=== PATIENT | female | born 2000 | race Caucasian/White ===

== ENCOUNTER 2021-05-25 04:05 | Emergency (ER) | payer BC, SELFPAY ==
--- NOTE | ~2021-05-25 | XR_ITS ---
XR hand LT min 3V DATE: 05/25/2021 05:01 INDICATION: Transcribed. Swelling of first digit. Evaluate for retained foreign body. TECHNIQUE: 4 views COMPARISON: None FINDINGS: Dorsal soft tissue swelling. No fracture or dislocation, periosteal reaction or bone destru ction. No erosive change. No radiopaque foreign body or subcutaneous emphysema. IMPRESSION: Dorsal soft tissue swelling; no radiopaque foreign body or significant bony abnormality Reviewed, dictated and finalized at location A. IMPRESSION: Dorsal soft tissue swelling; no radiopaque foreign body or signific ant bony abnormality
[2021-05-25 04:28] VITALS: PULSE 132; RESP 18; TEMP 36.6; O2SAT 98
--- NOTE | 2021-05-25 04:33 | PC.NURSE ---
Pt in saturated clothes from sweating due to PMH of cerebral palsy per pt and mother at bedside. Clothing removed and placed in dry gown w/ warm blanket. Pt refusing for u/a (straight cath), states I am my own person and I am not having any issues with my urine and I am not going to have it tested. Pt discussed w/ EDP Dr Sanchez at bedside, pt consents for blood draw. Pt declines BP at this time, unable to tolerate or lay still and states It hurts too much, take it off.
--- NOTE | 2021-05-25 05:03 | PC.NURSE ---
Pt refusing any care apart from dressing cat wound. Pt declines IV, IV meds, Lab draw, and u/a. EDP made aware. Pt mother at bedside.
--- NOTE | 2021-05-25 05:06 | ED.ABDPAIN ---
HPI - Abdominal Pain General Chief Complaint: Abdominal Pain Stated Complaint: cat scratch and abdominal pain Time Seen by Provider: 05/25/21 04:11 Source: patient and family History of Present Illness HPI narrative: Patient presents with 2 complaints primary complaint is her abdominal pain. She reports she is had abdominal pain for the past few days as crampy, constant, no clear aggravating or alleviating factors associated with some nausea and diarrhea. Patient thinks she was attacked by her cat reports she was bitten and scratched on her left hand event happened this evening she was concerned regarding the scratches so wanted them to be evaluated see if she needed stitches. Reports pain to the area that is burning, constant, worse with moving her hand does not radiate anywhere. Family reports the cat is up-to-date on their rabies vaccination. Family wash the wounds out at home Patient denies fevers, cough, chest pain, shortness of breath Related Data Allergies Allergy/AdvReac Type Severity Reaction Status Date / Time No Known Allergies Allergy Verified 05/25/21 04:36 Review of Systems Review of Systems: CONSTITUTIONAL: Denies fever, chills, or sweats. EYES: Denies visual changes, redness, or discharge. ENT: Denies rhinorrhea, congestion, sore throat, or otalgia. CARDIOVASCULAR: Denies chest pain, palpitations, or edema. RESPIRATORY: Denies cough or dyspnea. GASTROINTESTINAL: Reports abdominal pain nausea diarrhea GENITOURINARY: Denies dysuria or hematuria. SKIN: Denies rash or itching. MUSCULOSKELETAL: Denies back pain, joint pain, or myalgia. NEUROLOGIC: Denies headache, numbness, dizziness, or weakness. PSYCHIATRIC: Denies anxiety or depression. All systems reviewed & are unremarkable except as noted in HPI and below PMFSH Family History Family History Mother Hypertension Family history of chronic obstructive pulmonary disease Sibling Family history of attention deficit hyperactivity disorder (ADHD) Social History Social History Smoking status: Never smoker Alcohol intake: never Exam Narrative: GENERAL: Well-appearing, well-nourished, and in no acute distress. HEAD: Normocephalic, atraumatic. EYES: PERRLA and EOMI. ENT: Nares clear, no rhinorrhea or epistaxis. Mucous membranes moist. NECK: Supple. No masses. No JVD CHEST: Clear to auscultation. No respiratory distress. No wheezes rales or rhonchi HEART: Regular rate and rhythm. No murmur heard. Normal peripheral pulses. ABDOMEN: Mild diffuse pain with palpation soft, nondistended, normal active bowel sounds. EXTREMITIES: Normal range of motion. Multiple superficial abrasions and puncture wounds on the left hand and distal forearm there is no active bleeding there are no deep space tissues visualized SKIN: Warm, dry, no rash. NEURO: No focal deficits. Alert and oriented x3. PSYCH: Normal mood and affect. Course Reevaluation(s) Reevaluation #1: Patient refusing work-up for her abdominal pain. Patient she has been passing gas and feels a lot better she no longer wants to be evaluated for her abdominal pain. With the patient and she was having pain worrisome enough to bring her to the ER and I unable to rule out life-threatening processes without further evaluation. Patient continued to refuse. Date: 05/25/21 Time: 05:10 Vital Signs Vital signs: Vital Signs Temperature 36.6 C 05/25/21 04:28 Pulse Rate 132 H 05/25/21 04:28 Respiratory Rate 18 05/25/21 04:28 Pulse Oximetry 98 05/25/21 04:28 Temperature 36.6 C 05/25/21 04:28 Pulse Rate 132 H 05/25/21 04:28 Respiratory Rate 18 05/25/21 04:28 Pulse Oximetry 98 05/25/21 04:28 MDM - Abdominal Pain MDM Narrative Medical decision making narrative: Patient presented with multiple complaints. Her and it usually to her cats are superficial and there is no deep space t
== END 2021-05-25 05:22 | disposition left against medical advice (07) ==
LOC: ANHED 05:29
PROVIDERS: Emergency Provider Emergency Medicine; PCP Nurse Practitioner Family
DX: R10.84 Generalized abdominal pain (principal); R11.2 Nausea with vomiting, unspecified; R19.7 Diarrhea, unspecified; S61.452A Open bite of left hand, initial encounter; W55.01XA Bitten by cat, initial encounter
CPT/HCPCS: 73130; 99283

== ENCOUNTER 2022-03-15 12:31 | Emergency (ER) | payer OTHER, SELFPAY ==
--- NOTE | ~2022-03-15 | XR_ITS ---
EXAMINATION: XR abdomen obstructive series DATE: 03/15/2022 14:44 INDICATION: Abdominal pain TECHNIQUE: Upright and supine views of the abdomen were obtained. COMPARISON: None. FINDINGS: There are no dilated loops of bowel. No free intraperitoneal gas is identified. There are p hleboliths of the pelvis. There are partially imaged changes of thoracolumbar fusion. There is also p artially imaged orthopedic hardware in the visualized proximal femurs. IMPRESSION: 1. Nonobstructive bowel gas pattern. Reviewed, dictated and finalized at location L.
--- NOTE | 2022-03-15 12:52 | ED.ABDPAIN ---
HPI - Abdominal Pain General Chief Complaint: Abdominal Pain Stated Complaint: right side inner stomach, nausea Time Seen by Provider: 03/15/22 12:53 Source: patient Mode of arrival: ambulatory Limitations: no limitations History of Present Illness HPI narrative: Ms. Connor is a 21-year-old female patient presenting to the clinic today with complaints of right-sided lower abdominal pain and nausea x2 days. She report that she has only vomited 1 time yesterday. She denies any fever or chills. States pain is in the right lower abdomen. She is sexually active. Last sexual intercourse was in December, LMP was last month per patient. Her last bowel movement was 3 to 4 days ago. States it was really hard at that time. No history of any abdominal surgeries. No history of ovarian cyst. She denies any vaginal discharge or foul odor. She denies any urinary symptoms. Related Data Home Medications Medication Instructions Recorded Confirmed amitriptyline 50 mg tablet 50 mg PO DAILY 03/15/22 03/15/22 dicyclomine 20 mg tablet 20 mg PO DAILY 03/15/22 03/15/22 escitalopram oxalate 10 mg tablet 10 mg PO DAILY 03/15/22 03/15/22 medroxyprogesterone 150 mg/mL 150 mg IM MONTHLY 03/15/22 03/15/22 intramuscular suspension metoprolol succinate 50 mg 50 mg PO DAILY 03/15/22 03/15/22 tablet,extended release 24 hr sumatriptan succinate 25 mg tablet 25 mg PO DAILY 03/15/22 03/15/22 Allergies Allergy/AdvReac Type Severity Reaction Status Date / Time No Known Allergies Allergy Verified 03/15/22 13:16 Review of Systems Review of Systems: Pertinent positives per HPI. Patient denies any fever, chills, rash, headache, visual changes, dizziness, cough, runny nose, sore throat, shortness of breath, chest pain, palpitations, diarrhea, or any urinary issues. [facility] Family History Family History Mother Hypertension Family history of chronic obstructive pulmonary disease Sibling Family history of attention deficit hyperactivity disorder (ADHD) Social History Social History Smoking status: Never smoker Alcohol intake: never Comments At the time of my signature, I reviewed and agree with the nursing past medical, surgical, social, and family history. There is no relevant family history pertinent to the patient complaint. Exam Narrative: General: Well-developed, well nourished, in no apparent distress. Head: Normocephalic, atraumatic. Cardio: Regular rate and rhythm, s1 and s2 normal, no murmur appreciated. Resp: Clear to auscultation bilaterally, no rhonchi, rales, wheezing or rubs. Abdomen: Pliable, distended, bowel sounds present in all quadrants, mild tenderness to palpation over the right lower and mid quadrant, no organomegly, no CVAT tenderness. Course Course Emergency Course: Portions of this record may have been created with voice recognition software. Level of Care: Express Care Visit Vital Signs Vital signs: Vital signs reviewed MDM - Abdominal Pain MDM Narrative Medical decision making narrative: At the time of visit patient is resting comfortably on the exam table. test completed in the clinic and was negative. UA positive for blood, leukocytes, and protein. X-ray is negative for any concern for constipation or acute abdomen, I suspect the patient has urinary tract infection that is causing her right lower quadrant abdominal pain. I will place her on some Macrobid and have her follow-up with her PCP in 3 to 5 days if symptoms persist. Supportive measures were discussed with the patient she voiced understanding of discharge instructions and agrees to treatment plan. . Differential Diagnosis Differential diagnosis: Likely abdominal pain, acute appendicitis, calculus of kidney, constipation and other (Urinary tract infection) Discharge Plan Discharge Clinical Impression: Acute cystiti
[2022-03-15 12:55] VITALS: BP 136/104; PULSE 117; RESP 18; TEMP 36.8; O2SAT 99
== END 2022-03-15 15:10 | disposition home or self-care (01) ==
PROVIDERS: Emergency Provider Nurse Practitioner Family
DX: N30.01 Acute cystitis with hematuria (principal); I10 Essential (primary) hypertension; G80.9 Cerebral palsy, unspecified
CPT/HCPCS: 74019; 81003; 81025; 87086; 87088; 99213; G0463

== ENCOUNTER 2025-04-22 12:16 | Outpatient (CLI) | payer MEDICARE, MEDICAID, SELFPAY ==
--- OUTSIDE RECORDS SUMMARY | 2025-04-22 12:23 | XMS_ITS | Clinical Summary ---
Author Organization [facility] Address [address] [place] [address] Phone Care Team Providers Care Eap Specialist Name Role Phone Trisha Limon APRN, JOE Primary Care Provider Allergies No known active allergies Medications Multiple Vitamins-Physician Practice Market Manager als (MULTIVITAMIN PO) Take by mouth. Activ e METOPROLOL TARTRATE PO Take by mouth. Act chyna RaNITidine HCl (ZANTAC PO) Take by mouth. Act chyna Meloxicam (MOBIC) 15 MG Tablet Take 1 Tab by mouth daily. 10 Tab 10/11/19 18 Active medroxyPROGEST ERone (DEPO-PROVERA) 150 MG/ML Suspension medroxyprogesterone 150 mg/mL intramuscular suspension 09/18/19 16 Active baclofen (LIORESAL) 20 MG Tablet TAKE 1 TABLET(20 MG) BY MOUTH TWICE DAILY 01/17/20 22 Active senna-docusate (SENOKOT S) 8.6-50 MG Tablet Senna-S 8.6 mg-50 mg tablet TK 1 T PO BID PRF CONSTIPATION Active metoprolol Succinate (TOPROL-XL) 50 MG TABLET SR 24 HR metoprolol succinate ER 50 mg tablet,extended release 24 hr TK 1 T PO D 08/13/20 19 Active escitalopram (LEXAPRO) 10 MG Tablet TAKE 1 TABLET(10 MG) BY MOUTH EVERY NIGHT AT BEDTIME 06/28/20 22 Active amitriptyline (ELAVIL) 50 MG Tablet 08/29/19 23 Active amphetamine-de xtroamphetamin e (ADDERALL) 10 MG Tablet dextroamphetamine-amph etamine 10 mg tablet TK 1 T PO D EVERY AFTERNOON Active dicyclomine (BENTYL) 20 MG Tablet 08/29/19 Active ondansetron (ZOFRAN-ODT) 4 MG TABLET DISPERSIBLE Take 1 Tablet by mouth every 8 hours as needed for Nausea - 1st line. 20 Tablet 09/06/19 23 Active naproxen (NAPROSYN) 500 MG Tablet Take 1 Tablet by mouth 2 times daily as needed for Mild or more severe pain. 20 Tablet 10/07/19 23 Active Social History Tobacco Use Types Packs/Day Years Used Date Smoking Tobacco: Never Smokeless Tobacco: Never Alcohol Use Standard Drinks/Week Comments No 0 (1 standard drink = 0.6 oz pur e alcohol) Comments No Sex and Gender Information Value Date Recorded Sex Assigned at Not on file Legal Sex Female 8:41 PM CDT Gender Identity Not on file Sexual Orientation Not on file Last Filed Vital Signs Vital Sign Reading Time Taken Comments Blood Pressure 111/72 10/07/2022 10:28 PM PRINCIPAL SECURITY ARCHITECT Pulse 97 10/07/2022 9:13 PM PRINCIPAL SECURITY ARCHITECT Temperature 36.8 C (98.2 F) 10/07/2022 9:13 PM PRINCIPAL SECURITY ARCHITECT Respiratory Rate 20 10/07/2022 9:13 PM PRINCIPAL SECURITY ARCHITECT Oxygen Saturation 100% 10/07/2022 9:13 PM PRINCIPAL SECURITY ARCHITECT Inhaled Oxygen Concentration - - Weight 86.2 kg (190 lb) 10/07/2022 9:13 PM PRINCIPAL SECURITY ARCHITECT Height 167.6 cm (5' 6) 10/07/2022 9:13 PM PRINCIPAL SECURITY ARCHITECT Body Mass Index 30.67 10/07/2022 9:13 PM PRINCIPAL SECURITY ARCHITECT Plan of Treatment Health Maintenance Due Date Last Done Comments Hepatitis C Virus (HCV) Screening 1998 Influenza Immunization (#1) 04/18/202505/18, 06/22/2021, 05/30/2020, Additional history exists SARS-COV-2 Immunization ( season) 2025 11/26/2020, 10/31/2020 Respiratory Syncytial Virus (RSV) Immunization (Adult) (1 - 1-dose 75+ series) 2073 Hepatitis B Immunization Completed 999, 1998, 1998, Additional history exists DTaP/Tdap/Td Immunization Discontinued 2009, 07/04/2003, 07/04/2003, Additional history exists Human Papillomavirus (HPV) Immunization Completed 04/20/2010, 04/20/2010, 07/04/2009, Additional history exists TdaP Immunization Completed 04/20/2010 Meningococcal Immunization (ACWY) Completed 07/09/2014, 03/30/2013 Pneumococcal Immunization Combined Aged Out No longer eligible based on patient's age to complete this topic Rotavirus Immunization Aged Out No lo nger eligible based on patient's age to complete this topic Insurance [place]ICAID [place] Care Teams Eap Specialist Relationship Specialty Start Date End Date Trisha Limon APRN, IMAGING ADMINISTRATOR [address] [place] [phone] PCP - General Internal Medicine 08/31/22
--- OUTSIDE RECORDS SUMMARY | 2025-04-22 12:23 | XMS_ITS | Encounter Summary ---
Author Organization [facility] Facility Care Team Providers Care Family And Consumer Science Professor Name Role Phone Miscellaneous, Not In File Primary Care Provider Unavailable Kike Osorio DO Primary Care Provider [phone] Trisha Limon COMBAT CONTROL MANAGER Unavailable [phone] Encounter Details Date Type Department Care Team (Latest Contact Info) Description 09/20/2016 Orders Only [facility]INCON[facility] ProviderSilvestre MD [address] [place] [id number] Social History Tobacco Use Types Packs/Day Years Used Date Smoking Tobacco: Never Assessed Comments Unknown Sex and Gender Information Value Date Recorded Sex Assigned at Not on file Legal Sex Female 11:41 PM SOCIAL MEDIA JOB TITLES Gender Identity Not on file Sexual Orientation Not on file documented as of this encounter Plan of Treatment Not on file documented as of this encounter Procedures Procedure Name Priority Date/Time Associated Diagnosis Comments SCAN - LABS 09/20/2016 12:00 AM SOCIAL MEDIA JOB TITLES SCAN - LABS 09/20/2016 12:00 AM SOCIAL MEDIA JOB TITLES documented in this encounter Results * SCAN - LABS (09/20/2016 12:00 AM SOCIAL MEDIA JOB TITLES) Narrative 09/20/2016 12:00 AM SOCIAL MEDIA JOB TITLES Ordered by an unspecified provider. us Historical Provider MD Final Res ult * SCAN - LABS (09/20/2016 12:00 AM SOCIAL MEDIA JOB TITLES) Narrative 09/20/2016 12:00 AM SOCIAL MEDIA JOB TITLES Ordered by an unspecified provider. us Historical Provider MD Final Res ult documented in this encounter Visit Diagnoses Not on filedocumented in this encounter Care Teams Family And Consumer Science Professor Relationship Specialty Start Date End Date Miscellaneous, Not In File PCP - General 10/05/17 Kike Osorio DO PCP - General Internal Medicine 09/30/18 Trisha Limon NP Nurse Practitioner Nurse Practitioner 07/22/23 documented as of this encounter
--- OUTSIDE RECORDS SUMMARY | 2025-04-22 12:23 | XMS_ITS | Clinical Summary ---
Author Organization [facility] Address [address] [place] [address] Care Team Providers Care Harness Racing Handicapper Name Role Phone Trisha Limon SPRING FLOOR SERVICE WORKER-SPRING ASSEMBLER Primary Care Provider [phone] Jacque Anand SPRING FLOOR SERVICE WORKER-SPRING ASSEMBLER Unavailable [phone] Source Comments [facility],non-owned Affiliates and Associated Physician Practices is amultiple site organization consisting of ambulatory clinics and hospital sitesin [place], [place], [place] and [place]. This disclosure is being madepursuant to the Care Everywhere program and may not contain all information available regarding this patient. Last updated 18.[facility] Allergies No known active allergies Medications * Be aware that medications may not be up to date on this document. Alwaysverify current medications with the patient. polyethylene glycol 3350 (MIRALAX) powder Take 8.5 g by mouth once daily. 250 g 4 11/24/2014 Active medroxyPROGESTE Dominic (DEPO-PROVERA) 150 MG/ML injection Inject 1 mL into muscle 3 09/18/2015 Active amitriptyline (Elavil) 50 MG tablet TAKE 1 TABLET(50 MG) BY MOUTH EVERY NIGHT AT BEDTIME 08/29/2022 Active baclofen (Lioresal) 10 MG tablet 09/15/2023 Active dicyclomine (Bentyl) 20 MG tablet TAKE 1 TABLET(20 MG) BY MOUTH EVERY 6 HOURS 08/29/2022 Active escitalopram (Lexapro) 10 MG tablet Take 1 (one) tablet by mouth once daily 06/28/2022 Active loratadine (Claritin) 10 MG tablet once daily Active metoprolol succinate XL 24hr (Toprol XL) 50 MG tablet 09/15/2023 Active traZODone (Desyrel) 50 MG tablet 07/30/2023 Active triamcinolone acetonide (Kenalog) 0.1 % ointment 02/28/2023 Active Ubrelvy 100 MG tablet 09/15/2023 Active Active Problems Problem Noted Date Diagnosed Date Anxiety 10/06/2015 ADHD (attention deficit hyperactivity disorder) 03/31/2014 CP (cerebral palsy), spastic, 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 (AF LURIA, FLUZONE TRIVALENT; 6MO+) (IIV3) 08/31/2009 DTaP VACCINE IM (6wk-6yrs) 07/04/2003,,01/01/1999,10/30,1998 HEP A PEDS 2 DOSE 01/30/2007,08/04/2006 HEP B VACCINE, PED/ADOL 04/03/1999,1998, HIB BOOSTER 12/31/1999, 9,1998,08/30 Human Papilloma Virus Robe valent Vaccine 04/20/2010 Human Papilloma Virus Vaccine 07/04/2009, 009 INFLUENZA A A4M2-14 VACCINE 07/04/2009 INFLUENZA VACCINE 08/03/2008, 7,08/04/2006,05/18,06/11/2002,08/13/2001,07/10/2001 INFLUENZA VACCINE, QUADR. (F LUZONE; FLULAVAL; FLUARIX; AFLURIA QUADRIVALENT; 6MO+), 0.5 ML (IIV4) 05/02/2016 PARISH VACCINE QUAD LAIV4 PF NASAL 06/29/2015,2013,06/17/2013 MENINGOCOCCAL ACWY (MCV4P) VAC IM 07/09/2014, MMR 07/04/2003,07/02/1999 POLIO IPV 07/04/2003, 0,1998,08/30 PPD 07/04/2003,07/02/1999 TDAP (7yrs+) 04/20/2010 VARICELLA 10/01/1999 Social History Tobacco Use Types Packs/Day Years Used Date Smoking Tobacco: Never Tobacco Cessation:Counseling Given: Not Answered Alcohol Use Standard Drinks/Week Comments Not Asked 0 (1 standard drink = 0.6 oz pur e alcohol) Comments No Sex and Gender Information Value Date Recorded Sex Assigned at Not on file Legal Sex Female 6:54 AM COIN PURSE FRAMER Gender Identity Not on file Sexual Orientation Not on file Last Filed Vital Signs Vital Sign Reading Time Taken Comments Blood Pressure 113/82 10/23/2023 10:49 AM COIN PURSE FRAMER Pulse 100 10/23/2023 10:49 AM COIN PURSE FRAMER Temperature 36.3 C (97.3 F) 10/23/2023 10:49 AM COIN PURSE FRAMER Respiratory Rate 20 03/23/2015 10:29 AM CDT Oxygen Saturation 96% 10/23/2023 10:49 AM COIN PURSE FRAMER Inhaled Oxygen Concentration - - Weight 86.6 kg (191 lb) 10/23/2023 10:49 AM COIN PURSE FRAMER Height 167.6 cm (5' 6) 10/23/2023 10:49 AM COIN PURSE FRAMER Body Mass Index 30.83 10/23/2023 10:49 AM COIN PURSE FRAMER Plan of Treatment Health Maintenance Due Date Last Done Comments HIV SCREENING 2013 HEPATITIS C SCREENING 06/25/2016 PAP SMEAR 2019 DTAP/TDAP/TD VACCINES (7 - Td or Tdap) 04/20/2020 04/20/2010, 07/04/2003, 12/31/1999, Additional history exists DEPRESSION SCREENING 08/18/2024 MEDICARE AWV CALENDAR YEAR 2024 COVID-19 VACCINE ( season) 2025 INFLUENZA VACCINE (#1) 2025 3, 05/31/2022, 06/22/2021, Additional history exists ZOSTER VACCINE (1 of 2) 2048 HEPATITIS B VACCINE Completed 04/03/1999, 1998, 1998 HIB VACCINE Completed 12/31/1999, 12/16, 1998, Additional history exists HPV VACCINE Completed 04/20/2010, 06/18, 04/14/2009 MENINGOCOCCAL GROUPS A/C/Y/W VACCINE Completed 07/09/2014, 03/30/2013 MENINGOCOCCAL (Group B) VACCINE SHARED DECISION-MAKING Aged Out No longer eligible based on patient's age to complete this topic PNEUMOCOCCAL VACCINE Aged Out No long er eligible based on patient's age to complete this topic Goals Goal Patient Goal Type Associated Problems Recent Progress Patient-Stated? Author Use safety retraint in car Lifestyle On track( 016 9:43 AM CDT) Yen Nichols RN Note: NEW CAR SEAT SAFETY RULES Infants and toddlers should ride facing the rear of the vehicle until at least 2 years of age. Young children should ride in car safety seats with a 5 point harness until at least age 4. School-aged children should ride in belt positioning high back booster seats until at least age 8 or 80 lb until the seat belt fits correctly, as described by the AAP and NHTSA. Children should ride in the rear-seat until age 13. Seat belt laws should apply to all vehicle occupants Insurance [facility] MEDICAID - OUT OF STATE [facility] [employer] MANAGED MEDICARE ADV * Guarantor: CHRISTINA LANZA Account Type Relation to Patient Date of Phone Billing Address Personal/Family 2000 JESSENIA LANZA [address] [place] [address] Care Teams Harness Racing Handicapper Relationship Specialty Start Date End Date Trisha Limon APRN-CNP [address] [place] [id number] PCP - General Nurse Practitioner 10/09/23 Jacque Anand APRN-SPRING ASSEMBLER [address] [place] [address] PCP - Attributed-[facility] 03/18/25
--- OUTSIDE RECORDS SUMMARY | 2025-04-22 12:23 | XMS_ITS | Encounter Summary ---
Author Organization [facility] Facility Care Team Providers Care Liquefaction Supervisor Name Role Phone Miscellaneous, Not In File Primary Care Provider Unavailable Kike Osorio DO Primary Care Provider [phone] Trisha Limon AUTOMOBILE WASHER STEAM Unavailable [phone] Encounter Details Date Type Department Care Team (Latest Contact Info) Description 01/14/2018 Orders Only [facility] CLINCON[facility] ProviderSilvestre MD [address] [place] [id number] Social History Tobacco Use Types Packs/Day Years Used Date Smoking Tobacco: Never Alcohol Use Standard Drinks/Week Comments No 0 (1 standard drink = 0.6 oz pur e alcohol) Comments No Sex and Gender Information Value Date Recorded Sex Assigned at Not on file Legal Sex Female 11:41 PM CEMENT BLOCK MAKER Gender Identity Not on file Sexual Orientation Not on file documented as of this encounter Plan of Treatment Not on file documented as of this encounter Procedures Procedure Name Priority Date/Time Associated Diagnosis Comments SCAN - LABS 01/15/2018 12:00 AM CDT documented in this encounter Results * SCAN - LABS (01/15/2018 12:00 AM CDT) Narrative 01/15/2018 12:00 AM CDT Ordered by an unspecified provider. us Historical Provider MD Final Res ult documented in this encounter Visit Diagnoses Not on filedocumented in this encounter Care Teams Liquefaction Supervisor Relationship Specialty Start Date End Date Miscellaneous, Not In File PCP - General 10/05/17 Kike Osorio DO PCP - General Internal Medicine 09/30/18 Trisha Limon, JADE Nurse Practitioner Nurse Practitioner 07/22/23 documented as of this encounter
--- OUTSIDE RECORDS SUMMARY | 2025-04-22 12:23 | XMS_ITS | Encounter Summary ---
Author Organization [facility] Facility Care Team Providers Care Bunch Maker Name Role Phone Miscellaneous, Not In File Primary Care Provider Unavailable Kike Osorio DO Primary Care Provider [phone] Trisha Limon RABBIT BREEDER Unavailable [phone] Encounter Details Date Type Department Care Team (Latest Contact Info) Description 09/23/2016 Orders Only [facility] CLINCONV Provider, MD Silvestre [address] [place] [address] Social History Tobacco Use Types Packs/Day Years Used Date Smoking Tobacco: Never Assessed Comments Unknown Sex and Gender Information Value Date Recorded Sex Assigned at Not on file Legal Sex Female 11:41 PM NEEDLE CONTROL CHENILLER Gender Identity Not on file Sexual Orientation Not on file documented as of this encounter Plan of Treatment Not on file documented as of this encounter Procedures Procedure Name Priority Date/Time Associated Diagnosis Comments SCAN - LABS 09/23/2016 12:00 AM NEEDLE CONTROL CHENILLER documented in this encounter Results * SCAN - LABS (09/23/2016 12:00 AM NEEDLE CONTROL CHENILLER) Narrative 09/23/2016 12:00 AM NEEDLE CONTROL CHENILLER Ordered by an unspecified provider. Historical Provider Final Res ult documented in this encounter Visit Diagnoses Not on filedocumented in this encounter Care Teams Bunch Maker Relationship Specialty Start Date End Date Miscellaneous, Not In File PCP - General 10/05/17 Kike Osorio DO PCP - General Internal Medicine 09/30/18 Trisha Limon NP Nurse Practitioner Nurse Practitioner 07/22/23 documented as of this encounter
--- OUTSIDE RECORDS SUMMARY | 2025-04-22 12:23 | XMS_ITS | Clinical Summary ---
Author Organization [facility] Address [address] [place] [address] Care Team Providers Care Welding Manager Name Role Phone Kike Osorio DO Primary Care Provider [phone] Trisha Limon ELDERLY CAREGIVER Unavailable [phone] Allergies No known active allergies Medications levonorgestrel & ethinyl estradiol (AMETHIA) 0.15 mg-30 mcg tablets,dose pack,3 monthIndications: Menorrhagia Take 1 tablet by mouth nightly Active aspirin 325 mg enteric coated tabletIndications :prevention of thrombosis Take 1 tablet (325 mg total) by mouth daily for 30 doses 30 tablet Active amitriptyline (ELAVIL) 10 mg tabletIndications :stomach Take 1 tablet (10 mg total) by mouth nightly as needed for sleep Active methocarbamol (ROBAXIN) 500 mg tablet Take 1 tablet (500 mg total) by mouth 2 (two) times a day Active dicyclomine (BENTYL) 20 mg tabletIndications :Abdominal Pain with Cramps Take 1 tablet (20 mg total) by mouth 2 (two) times a day 0 Active wheelchair device Removable arms, elevated leg rests 1 each 020 Active metoprolol XL (TOPROL-XL) 50 mg 24 hr tablet Take 1 tablet (50 mg total) by mouth daily 019 Active naproxen (ANAPROX DS) 550 mg tablet Take 1 tablet (550 mg total) by mouth 2 (two) times a day Active acetaminophen-cod eine (TYLENOL with CODEINE #3) 300-30 mg per tablet acetaminophen 300 mg-codeine 30 mg tablet Active amoxicillin (AMOXIL) 500 mg tablet/capsule amoxicillin 500 mg capsule Active amoxicillin-clavu lanate (AUGMENTIN) 875-125 mg per tablet amoxicillin 875 mg-potassium clavulanate 125 mg tablet Active azithromycin (ZITHROMAX) 250 mg tablet azithromycin 250 mg tablet ZPK Active baclofen (LIORESAL) 10 mg tablet 022 Active benzonatate (TESSALON) 100 mg capsule benzonatate 100 mg capsule TK 1 C PO TID FOR 10 DAYS PRN Active cefuroxime (CEFTIN) 250 mg tablet cefuroxime axetil 250 mg tablet Active celecoxib (CeleBREX) 200 mg capsule celecoxib 200 mg capsule TK 1 C PO QD Active cephalexin (KEFLEX) 500 mg capsule cephalexin 500 mg capsule TK 1 C PO Q 12 H FOR 7 DAYS Active citalopram (CeleXA) 20 mg tablet citalopram 20 mg tablet TAKE 1/2 TAB DAILY FOR 7 DAYS, THEN 1 TAB DAILY Active dextroamphetamine -amphetamine (ADDERALL) 10 mg tablet dextroamphetamine-amph etamine 10 mg tablet TK 1 T PO D EVERY AFTERNOON Active HYDROcodone-aceta minophen (NORCO) 5-325 mg per tablet hydrocodone 5 mg-acetaminophen 325 mg tablet TK 1 TO 2 TS PO Q 6 H PRN P Active ketorolac (TORADOL) 10 mg tablet ketorolac 10 mg tablet TK 1 T PO Q 6 H PRN P Act chyna lisdexamfetamine (VYVANSE) 70 mg capsule Vyvanse 70 mg capsule Active loratadine (CLARITIN) 10 mg tablet daily Active meclizine (ANTIVERT) 25 mg tablet meclizine 25 mg tablet TK 1 T PO TID PRF DIZZINES Active medroxyPROGESTERo ne (medroxyPROGESTER one) 150 mg/mL injection medroxyprogesterone 150 mg/mL intramuscular suspension Active nitrofurantoin monohydrate (MACROBID) 100 mg capsule nitrofurantoin monohydrate/macrocryst als 100 mg capsule TK 1 C BID WITH MORNING AND EVENING MEAL FOR 5 DAYS Active ondansetron ODT (ZOFRAN-ODT) 4 mg disintegrating tablet ondansetron 4 mg disintegrating tablet DIS 1 T ON THE TONGUE Q 8 H PRN Active polymyxin B-trimethoprim (POLYTRIM) ophthalmic solution polymyxin B sulfate 10,000 unit-trimethoprim 1 mg/mL eye drops INSTILL 1 DROP IN AFFECTED EYE Q 4 H WHILE AWAKE FOR 7 DAYS Ac tive promethazine (PHENERGAN) 12.5 mg tablet promethazine 12.5 mg tablet TK 1 T PO Q 6 H PRN N OR VOMITING FOR UP TO 7 DAYS Active senna-docusate (PERICOLACE) 8.6-50 mg Senna-S 8.6 mg-50 mg tablet TK 1 T PO BID PRF CONSTIPATION Active sertraline (ZOLOFT) 25 mg tablet sertraline 25 mg tablet TK 1 T PO ONCE D Active sulfamethoxazole- trimethoprim (BACTRIM DS) 800-160 mg per tablet sulfamethoxazole 800 mg-trimethoprim 160 mg tablet TK 1 T PO BID FOR 7 DAYS Active SUMAtriptan (IMITREX) 25 mg tablet TAKE 1 TABLET BY MOUTH AT ONSET OF HEADACHE. MAY REPEAT IN 2 HOURS IF NO RELIEF 022 Active traMADoL (ULTRAM) 50 mg tablet tramadol 50 mg tablet TK 1 T PO Q 6 H Active erenumab-aooe (Aimovig Autoinjector) 70 mg/mL auto-injector subcutaneous injection Inject 1 mL (70 mg total) under the skin every 30 (thirty) days Ac tive Active Problems Patient Care Coordination No te Formatting of this note migh t be different from the original. 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 Overview (11/30/2018): Added automatically from request for surgery [id number] Generalized abdominal pain 07/17/2018 Gastroesophageal reflux dise ase, esophagitis presence not specified 07/17/2018 Abdominal bloating 07/17/2018 Essential hypertension 01/03/2017 Anxiety 10/06/2015 Attention deficit hyperactivity disorder (ADHD) 03/31/2014 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 Immunizations Immunization Administration Dates Next Due DTaP 07/04/2003, 0,01/01/1999,10/30,1998 DTaP / IPV 07/04/2003, 0,1998,08/30 H1N1 Inj 07/04/2009 HPV, Quadrivalent 04/20/2010 HPV, Unspecified 04/20/2010,07/04/2009, 9 Hep A, Ped Unspecified 01/30/2007,08/04/2006 Hep A, Pediatric 01/30/2007,08/04/2006 Hep A, Unspecified 01/30/2007,08/04/2006 Hep B, Adolescent or Pediatric 9,1998,1998,06/30 HiB 12/31/1999, 9,1998,08/30 Hib (HbOC) 12/31/1999, 9,1998,08/30 Hib (PRP-D) 12/31/1999, 9,1998,08/30 IPV 07/04/2003, 0,1998,08/30 Influenza LAIV (Nasal) 06/29/2015,05/13/2014, Influenza, Live, Intranasal, Quadrivalent 06/29/2015,05/13/2014,06/17/2013 Influenza, Quadrivalent, Spl it, Intramuscular 07/07/2017 Influenza, Quadrivalent, Spl it, Preservative Free, Intramuscular 06/22/2021,05/30/2020,08/25/2019,05/02 Influenza, Split 08/31/2009,08/03/2008 Influenza, Unspecified 06/16/2007,2005,05/18/2003,06/11,08/13/2001,07/15/2001 MMR 07/04/2003,07/02/1999 Meningococcal MCV4P (Menactra) 07/09/2014,2012 PPD TEST 07/04/2003,07/02/1999 Tdap 04/20/2010 Varicella 10/01/1999 Surgical History Surgery Date Site/Laterality Comments LEG SURGERY 08/18/2014 - 08/17/2015 HEEL SPUR SURGERY 08/18/2006 - 08/17/2007 Bilateral TYMPANOSTOMY TUBE PLACEMENT 08/18/2003 - 08/17/2004 ANKLE SURGERY 12/15/2018 Left BACK SURGERY 08/18/2011 - 08/17/2012 HIP SURGERY Bilateral Medical History Medical History Date Comments Cerebral palsy Scoliosis Anxiety Gastric reflux Hypertension MRSA (methicillin resistant Staphylococcus aureus) Congenital diplegia (HCC) 11/30/2018 Added automatically from request for surgery [id number] Family History Medical History Relation Name Comments Heart failure Maternal Grandmother Arthritis Mother Hypertension Mother Mental illness Mother lung problems Mother Anesthesia problems Neg Hx Relation Name Status Comments Maternal Grandmother Mother Social History Tobacco Use Types Packs/Day Years Used Date Smoking Tobacco: Never Smokeless Tobacco: Never Tobacco Cessation:Counseling Given: Not Answered Alcohol Use Standard Drinks/Week Comments No 0 (1 standard drink = 0.6 oz pur e alcohol) AUDIT-C Answer Date Recorded Q1: How often do you have a drink containing alc ohol? Monthly or less 07/20/2024 Q2: How many drinks containi ng alcohol do you have on a typical day when you are drinking? 1 or 2 07/20/2024 Q3: How often do you have si x or more drinks on one occasion? Never 07/20/2024 Hunger Vital Sign Answer Date Recorded Within the past 12 months, y ou worried that your food would run out before you got the money to buy more. Never true 07/20/20 24 Within the past 12 months, t he food you bought just didn't last and you didn't have money to get more. Never true 07/20/2024 Comments No Sex and Gender Information Value Date Recorded Sex Assigned at Not on file Legal Sex Female 11:41 PM WILDLIFE REFUGE SPECIALIST Gender Identity Not on file Sexual Orientation Not on file Obstetrics History Last Filed Vital Signs Vital Sign Reading Time Taken Comments Blood Pressure 113/62 07/20/2024 3:19 PM WILDLIFE REFUGE SPECIALIST Pulse 88 07/20/2024 3:19 PM WILDLIFE REFUGE SPECIALIST Temperature 36.9 C (98.4 F) 07/20/2024 3:19 PM WILDLIFE REFUGE SPECIALIST Respiratory Rate 16 12/09/2023 12:21 PM CDT Oxygen Saturation 97% 07/20/2024 3:19 PM WILDLIFE REFUGE SPECIALIST Inhaled Oxygen Concentration - - Weight 99.8 kg (220 lb) 07/20/2024 3:19 PM WILDLIFE REFUGE SPECIALIST Height 167.6 cm (5' 6) 07/20/2024 3:19 PM WILDLIFE REFUGE SPECIALIST Body Mass Index 35.51 07/20/2024 3:19 PM WILDLIFE REFUGE SPECIALIST Plan of Treatment Health Maintenance Due Date Last Done Comments Cervical Cancer Screening 1998 Depression Screening 1998 Hepatitis C Screening 1998 Varicella Vaccines (2 of 2 - 2-dose childhood series) 07/27/2015 10/01/1999 Regular Well Visit/Exam 18-64 2016 Influenza Vaccine (#1) 2025 , 05/31/2022, 06/22/2021, Additional history exists DTaP/Tdap/Td Vaccine (8 - Td or Tdap) 11/06/2032 11/06/2022, 04/20/2010, 07/04/2003, Additional history exists Hepatitis B Screening Completed 04/03/1999 , 1998, 1998, Additional history exists HPV Vaccines Completed 04/20/2010, 10/2009, 07/04/2009, Additional history exists Pneumococcal vaccine <65 Aged Out No longer eligible based on patient's age to complete this topic Medical Devices Implanted Type Area Astronomy Professor Device Identifier Shelf Expiration Date Model / Serial / Lot [employer] [id number] Tenodesis 4.75mm 15mm Acl Screw Interference Biocomposite Sterile - [id number] Implanted:Qty: 1 on 12/15/2018 by Yevgeniy Bustillos MD at [facility] Left: Foot [employer] [id number] 04/17/2020 AR-1547BC / / [id number] [employer] [id number] Tenodesis 4.75mm 15mm Acl Screw Interference Biocomposite Sterile - [id number] Implanted:Qty: 1 on 08/24/2019 by Yevgeniy Bustillos MD at [facility] Medicine Right: Foot [employer] [id number] 04/17/2020 AR-1547BC / / [id number] Insurance [facility] [place] [address] [facility] Member Subscriber Plan / Payer (Ef fective 2021-Present) Name:Antionette Lanza Relation to Subscriber:Self Name:Antionette Lanza Payer ID:[id number] (NAIC) Type:MEDICAID RISK OTHER Address: [address] [address] [facility] OTHER Address: [address] [address] MEDICARE Advance Directives For more information, please contact: [phone] * Full Code (Latest Code Status on File) Date Activated Date Inactivated Comments 08/24/2019 5:52 PM 08/25/2019 5:31 PM * Full Code Date Activated Date Inactivated Comments 12/15/2018 12:20 PM 12/16/2018 7:42 PM Care Teams Welding Manager Relationship Specialty Start Date End Date Kike Osorio DO PCP - General Internal Medicine 09/30/18 Trisha Limon NP Nurse Practitioner Nurse Practitioner 07/22/23
--- NOTE | 2025-04-22 12:27 | ECG_ITS ---
Test Date: 2025-04-22 12:36:56 Measurements Intervals [place] Rate: 96 P: 16 SC: 140 QRS: 52 QRSD: 93 T: 21 QT: 336 QTc: 426 Interpretive Statements SINUS RHYTHM No previous ECG available for comparison Electronically Signed On 04-22-2025 12:45:52 CDT by Jamal Arora M.D.
[2025-04-22 13:02] LABS: Hematocrit 40.3 % (37.0-47.0); Hemoglobin 13.2 g/dL (12.0-15.0); Mean Corpuscular HGB Conc 32.8 g/dl (32-36); Mean Corpuscular Hemoglobin 29.8 pg (26-34); Mean Corpuscular Volume 91.0 fl (80-100); Platelet Count Result 311 k/mm3 (150-375); Red Blood Count 4.43 M/mm3 (4.2-5.4); White Blood Count 8.2 K/mm3 (4.5-10.0)
== END 2025-04-22 12:17 | disposition home or self-care (01) ==
LOC: ANHSURGERY 12:21
PROVIDERS: PCP Nurse Practitioner Family; Visit Provider Obstetrics & Gynecology
DX: Z30.09 Encounter for other general counseling and advice on contraception (principal); I10 Essential (primary) hypertension
CPT/HCPCS: 36415; 85027; 93005

== ENCOUNTER 2025-05-12 00:24 | Day surgery (SDC) | payer MEDICARE, MEDICAID, SELFPAY ==
[2025-04-21 11:20] VITALS: BMI 35.6
--- NOTE | 2025-04-21 11:28 | PC.NURSE ---
Addendum entered by Chaz Mayo RN 05/02/25 12:59: Patient says nothing has changed with her since preop interview. Says surgery was cancelled because her family, not her had covid. She was away when it happened and just stayed away until it was over so she did not get sick. Informed patient to be her 0700 on 05-12-2025 at 0900. Patient has a copy of the below instructions. Encouraged her to read it over again. Original Note: Report to the Outpatient Waiting Room, entrance under the green pavilion located off [facility], at time _0630_ on date _[id number]_. Planned Procedure Time: _0830_.? Time changes happen often and if your time is changed the preop area will call you the afternoon before. - You and your visitor will be asked to self-screen and do not enter if you have any COVID symptoms. Please call surgeon if you need to reschedule. - A mask is optional within the hospital at this time. Patients may have clear liquids (water, carbonated beverages, clear teas, apple juice) until 3 hours prior to surgery with a maximum of 20 ounces. - No food from midnight until time of surgery and no smoking, or chewing tobacco (or any form of nicotine). No chewing gum, candy or mints. Take only the following medications with a SIP of water on the morning of surgery: __None____ DO NOT STOP ANY OF YOUR OTHER PRESCRIPTION MEDICATIONS PRIOR TO SURGERY EXCEPT THE FOLLOWING Hold all vitamins and supplements for 3 days per anesthesiologist. Medications to discontinue per physician Date to take last dose Please no make-up, nail jordanian, hairspray, perfume, deodorant, or body powder the day of surgery.? No jewelry (including any body piercings) or valuables the day of surgery, leave them at home.? Please take a shower or bath the night before, or the morning of, surgery with an antibacterial soap.? Wear comfortable, loose fitting clothing.? - Jewelry must be removed prior to entering the operating room.? Rings and piercings that are not removed may be cut off. - The hospital will not accept responsibility for valuables.? - Please leave all valuables, including medications, at home the day of surgery. If you are going home after surgery, a licensed driver service technician must drive you home.? - NO public transportation without another adult if you receive anesthesia. - We recommend that an adult stay with you for 24 hours following discharge. - We also recommend that you do not drive, make important decision, drink alcoholic beverages, or take any drugs that were not prescribed by your health care provider for at least 24 hours after your discharge time. Follow any additional instructions given to you from your surgeon. Telephone instructions given to __Antionette and her mother___and asked if any additional questions and then verbalized understanding. Patient advised to call surgeon office or pre surgery nurse liaison [phone] if any additional questions.
--- NOTE | 2025-05-11 17:48 | PM.IMHP ---
H&P: HPI History of Present Illness Date/Time: 05/11/25 17:48 24-year-old female presents for permanent sterilization. She has cerebral palsy and understands that would be a significant burden for her. Is not interested in childbearing, we have discussed is that she and her family and they are all in agreement to proceed with permanent sterilization. Also has a fairly significant history of abnormal bleeding for which she would like to stay on control pills after procedure. Chief Complaint: Undesired fertility Review of Systems Review of Systems: All systems reviewed & are unremarkable except as noted in HPI and below PMFSH Past Medical History Medical History Cyst of brain Encounter for Papanicolaou smear for cervical cancer screening Purulent drainage of both ears through ear tube as child Hip dysplasia Hypertension Scoliosis Cerebral palsy, unspecified (03/30/19) Surgical History Surgical History History of orthopedic surgery bilateral foot surgery History of back surgery metal rods in back , hip to knees Family History Family History Mother Hypertension Family history of chronic obstructive pulmonary disease Sibling Family history of attention deficit hyperactivity disorder (ADHD) Grandparent Alzheimer disease grandmother Social History Social History Smoking status: Never smoker Second hand tobacco smoke exposure: Yes Alcohol intake: current Alcohol use details: 1-3 times a year Substance use: current Substance use type: marijuana Other substance usage details: Edibles for pain at night Do You Feel Safe in your Home?: Yes Lack of Transportation: No Lack of Food: Never True Current Housing: I Have Housing Concerned About Future Housing: No Difficulty Paying Gas/Electric Bills: No Difficulty Paying for Meds: No Currently Unemployed: No Education: High School Diploma/GED Difficulty w/ Childcare or Family Care: No Living arrangements: with family Additional living arrangements comments: lives with grandparents Occupation/Education: unemployed Additional occupation/education comments: disabled Gender identity (if verbalized by the patient): Female Sexual Orientation (if Verbalized by the Patient): Straight or Heterosexual Spiritual care concerns: No Meds Home Medications and Allergies Home Medications ?Medication ?Instructions ?Recorded ?Confirmed ?Type dicyclomine 20 mg tablet 20 mg PO DAILY 03/15/22 05/02/25 History escitalopram oxalate 10 mg tablet 10 mg PO DAILY 03/15/22 04/21/25 History metoprolol succinate 50 mg 50 mg PO DAILY 03/15/22 04/21/25 History tablet,extended release 24 hr sumatriptan succinate 25 mg tablet 25 mg PO DAILY 03/15/22 04/21/25 History drospirenone 3 mg-ethinyl 1 tablet PO DAILY #84 tabs 07/22/24 04/21/25 Rx estradiol 0.02 mg tablet (KARIME (28)) Allergies Allergy/AdvReac Type Severity Reaction Status Date / Time No Known Allergies Allergy Verified 05/02/25 12:59 Exam Resp: Effort & Inspection: normal respiratory effort Auscultation: clear to auscultation bilaterally Cardio: Rate: regular rate Rhythm: regular rhythm GI: Inspection: normal to inspection Auscultation: normal bowel sounds : External Female Exam: normal external appearance Speculum Exam - Vagina: normal appearance of the vagina Bimanual exam- vagina & uterus: normal bimanual exam Bimanual Exam- Adnexa, other: normal adnexae Assessment and Plan Assessment and plan (1) Encounter for female sterilization procedure: Code(s): Z30.2 - Encounter for sterilization Status: Acute Assessment and Plan: proceed with laparoscopic bilateral salpingectomy
[2025-05-12] VITALS (7 sets, daily range): BP systolic 121–144; BP diastolic 74–108; PULSE 73–86; RESP 13–18; TEMP 36.2–36.6; O2SAT 97–100
[2025-05-12] MEDS: ACETAMINOPHEN 500 MG TABLET 1000 MG PO (07:32)
[2025-05-12] MEDS: LACTATED RINGERS 1,000 ML 30 ML IV CONT (07:50)
[2025-05-12 07:51] LABS: BEDSIDEPREGUCG Negative (Negative)
[2025-05-12] MEDS: KETOROLAC 15 MG/ML VIAL (*BKC) IV PUSH (07:54)
[2025-05-12] MEDS: SCOPOLAMINE 1 MG PATCH 1 PATCH TRANSDERM (07:55)
--- NOTE | 2025-05-12 08:36 | WPDHPUPDATE1 ---
History and Physical Update Update Date/Time: 05/12/25 08:36 History and Physical has been reviewed, including an updated exam of the patient. There are NO changes in the patient's condition. Risks, benefits, and alternatives have been discussed and questions answered. Patient agrees to proceed with procedure.
--- NOTE | 2025-05-12 08:40 | WPDANESEPPF ---
Anes - Initial Pre Proc Eval Procedure: Operation Date: 05/12/25 09:00 Proposed Procedures p Bilateral Laparoscopic Salpingectomy - Prabhakar White MD Date/Time: 05/12/25 08:40 Surgeon: Prabhakar White MD Pre Op Diagnosis: desires sterilization Patient Data Age: 24 Gender: F Height: 1.68 m Weight: 101.5 kg Last Vital Signs Temp 36.6 C 05/12/25 07:00 Pulse 79 05/12/25 07:00 Resp 18 05/12/25 07:00 BP 129/83 05/12/25 07:00 Pulse Ox 97 05/12/25 07:00 O2 Del Method Room Air 05/12/25 07:00 Allergies Allergy/AdvReac Type Severity Reaction Status Date / Time No Known Allergies Allergy Verified 05/12/25 07:46 Home Medications ?Medication ?Instructions ?Recorded ?Confirmed ?Type dicyclomine 20 mg tablet 20 mg PO DAILY 03/15/22 05/12/25 History escitalopram oxalate 10 mg tablet 10 mg PO DAILY 03/15/22 05/12/25 History metoprolol succinate 50 mg 50 mg PO DAILY 03/15/22 05/12/25 History tablet,extended release 24 hr sumatriptan succinate 25 mg tablet 25 mg PO DAILY 03/15/22 05/12/25 History drospirenone 3 mg-ethinyl 1 tablet PO DAILY #84 tabs 07/22/24 05/12/25 Rx estradiol 0.02 mg tablet (KARIME (28)) Laboratory Tests 05/12/25 07:20 POC Urine HCG, Qual Negative (Negative) Patient hx anesthesia problems: none Family hx anesthesia problems: none Results Review: All pre-operative results and documents have been reviewed as part of the pre-operative evaluation. [facility] Past Medical History Medical History Cyst of brain Encounter for Papanicolaou smear for cervical cancer screening Purulent drainage of both ears through ear tube as child Hip dysplasia Hypertension Scoliosis Cerebral palsy, unspecified (03/30/19) Surgical History Surgical History History of orthopedic surgery bilateral foot surgery History of back surgery metal rods in back , hip to knees Family History Family History Mother Hypertension Family history of chronic obstructive pulmonary disease Sibling Family history of attention deficit hyperactivity disorder (ADHD) Grandparent Alzheimer disease grandmother Social History Social History Smoking status: Never smoker Second hand tobacco smoke exposure: Yes Alcohol intake: current Alcohol use details: 1-3 times a year Substance use: current Substance use type: marijuana Other substance usage details: Edibles for pain at night Do You Feel Safe in your Home?: Yes Lack of Transportation: No Lack of Food: Never True Current Housing: I Have Housing Concerned About Future Housing: No Difficulty Paying Gas/Electric Bills: No Difficulty Paying for Meds: No Currently Unemployed: No Education: High School Diploma/GED Difficulty w/ Childcare or Family Care: No Living arrangements: with family Additional living arrangements comments: lives with grandparents Occupation/Education: unemployed Additional occupation/education comments: disabled Gender identity (if verbalized by the patient): Female Sexual Orientation (if Verbalized by the Patient): Straight or Heterosexual Spiritual care concerns: No Anes - Eval Final PreProcedure Day of Procedure 05/12/25 08:40 Patient weight: obese Heart: regular rate and rhythm Lungs: clear to auscultation Airway: Mallampati scale class II Neurological: alert and oriented Last oral intake: >/= 8 hours ASA classification: III Emergent: no Anesthetic plan: proceed Anesthesia type and monitoring: general ETT and standard monitoring Results Review: All pre-operative results and documents have been reviewed as part of the pre-operative evaluation. Informed Consent: The patient's anesthetic plan and its attendant risks and benefits were discussed with the patient/family/POA. Questions were solicited and answers provided to the satisfaction of the patient/family/POA.
--- NOTE | 2025-05-12 09:15 | S_PTH ---
PATIENT: Antionette Lanza LOC: [facility] U#:[id number] AGE/SX: 24/F ROOM: RE05/12/[address]: Prabhakar White MD : 2000 BED: DIS: 05/12/2025 SPEC #: [id number] RECD: 05/12/25 10:04 STATUS: DALJIT REJai #: [id number] CAROLYN: 05/12/25 09:[address]: Prabhakar White DEPT: [facility] Surgical RECD BY: Chary Mckeon ENTERED: 05/12/25 10:04 SP TYPE: Surgical OTHR DR: GERRY MESA, ACCOUNT FINANCIAL MANAGER Tissues: A - Fallopian Tube Bilateral Procedures: Gross and Microscopic Level 2 Hematoxylin and Eosin Stain
--- NOTE | 2025-05-12 09:47 | W.PM.PROC2 ---
Procedure Note - Detailed Date of Procedure 05/12/25 Pre-op Diagnosis desires sterilization Post-op Diagnosis Same Procedure Performed Laparoscopic bilateral salpingectomy Surgeon Prabhakar White MD Anesthesia General Findings Uterus tubes ovaries without abnormality Description of Procedure Patient prepped draped usual manner for this procedure. Cervical instruments were placed for uterine mobility throughout the case. Abdominal trocar sites were marked and placed under direct visualization. Mesial salpinx bilaterally was cauterized and cut and tubes removed without difficulty. There was no bleeding in the mesial salpinx and the bleeding and the tubal edge. Gas was allowed to escape and the trocars removed without difficulty. Patient was then sent to recovery room in stable condition after 4-0 Monocryl was used to approximate the skin edges. Estimated Blood Loss 10 Drains No Packing No Pathology Yes Complications No immediate complications Condition Stable Disposition PACU [facility] Billing Surgery - Charge Forward: Surgery Billing
[2025-05-12] MEDS: fentaNYL CITRATE INJ (*CRX) 100 MCG/2 ML VIAL 25 MCG IV PUSH ×2 (09:51→10:07)
[2025-05-12] MEDS: oxyCODONE HCL (*CRX) 5 MG TAB IR PO (10:42)
== END 2025-05-12 10:56 | disposition home or self-care (01) ==
PROVIDERS: PCP Nurse Practitioner Family; Visit Provider Obstetrics & Gynecology
PROC: (CPT 49320; principal; 2025-05-12 09:00)
DX: Z30.2 Encounter for sterilization (principal); G89.18 Other acute postprocedural pain; Q65.89 Other specified congenital deformities of hip; I10 Essential (primary) hypertension; G80.9 Cerebral palsy, unspecified; M41.9 Scoliosis, unspecified; F12.90 Cannabis use, unspecified, uncomplicated; E66.9 Obesity, unspecified; Z68.36 Body mass index [BMI] 36.0-36.9, adult; Z98.890 Other specified postprocedural states; Z98.1 Arthrodesis status
CPT/HCPCS: 58661; 88302; A9270; J1100; J1885; J2250; J2270; J2405; J2704; J3010; J7120